=== PATIENT | female | born 1980 | race Two or more races ===

== ENCOUNTER 2025-03-22 20:07 | Inpatient (IN) | payer OTHER ==
[~2025-03-22] VITALS: Ht 162.6 cm; Wt 72.3 kg
--- NOTE | 2025-03-22 20:30 | ED.PDOC ---
GI ASSESSMENT HPI Comments 44 y/o Malaysian-speaking F presents with c/c lower abdominal pain, constipation, and urinary retention. Patient endorses of 4x day history with pain following initial, unprovoked and atraumatic onset, with additional onset of remaining symptoms, today. Denies any nausea, vomiting, or further acute symptoms. 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 OPERATOR Hx Family History Family History: Unknown Social History Smoker: Non-Smoker Alcohol: Denies ETOH Use Drugs: Denies Drug Use Lives In: Home All Other Systems: Reviewed and Negative (As per HPI) Physical Exam General Appearance: No Apparent Distress, Normal HEENT: Normal ENT Inspection, Pharynx Normal, TMs Normal Neck: Full Range of Motion, Non-Tender, Normal, Normal Inspection Respiratory: Chest Non-Tender, Lungs Clear, No Accessory Muscle Use, No Respiratory Distress, Normal Breath Sounds Cardiovascular: No Edema, No JVD, No Murmur, No Gallop, Normal Peripheral Pulses, Regular Rate/Rhythm Breast Exam: Deferred Gastrointestinal: No Organomegaly, No Pulsatile Mass, Normal Bowel Sounds, Soft, Tenderness (mild tenderness to lower abdomen ) Genitalia: Deferred Pelvic: Deferred Rectal: Deferred Extremities: No calf tenderness, Normal capillary refill, Normal inspection, Normal range of motion, Non-tender, No pedal edema Musculoskeletal : Apperance: Normal Neurologic: Alert, siene maker II-XII nml as Tested, No Motor Deficits, Normal Affect, Normal Mood, No Sensory Deficits Cerebellar Function: Normal Reflexes: Normal Skin: Dry, Normal Color, Warm Lymphatic: No Adenopathy Was a procedure done? Was a procedure done?: No GI differential Dx Differential Diagnosis: Constipation, Gastritis/PUD, Gastroenteritis, UTI, Urolithiasis, Electrolyte Imbalance, Food Poisoning, , Viral, Kidney Stone X-Ray, Labs, Meds, VS Vital Signs Date Time Temp Pulse Resp B/P (MAP) Pulse Ox O2 Delivery O2 Flow Rate FiO2 03/22/25 20:14 98.5 89 16 144/118 98 98.5 Lab Test 03/22/25 20:42 03/22/25 20:40 Range/Units Urine Color Light-yellow Yellow Urine Clarity Clear Clear Urine pH 5.5 5.0-9.0 Urine Specific [place] 1.020 1.001-1.035 Urine Protein Negative Negative Urine Ketones Negative Negative Urine Blood 2+ H Negative /uL Urine Nitrite Negative Negative Urine Bilirubin Negative Negative Urine Urobilinogen Normal Negative mg/dL Urine Leukocyte Esterase Negative Negative /uL Urine RBC 2 0 - 4 /hpf Urine Microscopic WBC < 1 0-5 /HPF Urine Squamous Epithelial Cells Few <5 /hpf Urine Bacteria None seen None Seen /hpf Urine Glucose 1+ H Normal mg/dL Urine Test Negative Negative White Blood Count 26.7 H 4.4-10.8 10^3/uL Red Blood Count 4.97 4.0-5.20 10^6/uL Hemoglobin 14.5 12.2-16.2 g/dL Hematocrit 42.8 36.0-46.0 % Mean Corpuscular Volume 86.0 80.0-100.0 fL Mean Corpuscular Hemoglobin 29.1 28.0-32.0 pg Mean Corpuscular Hemoglobin Concent 33.8 32.0-36.0 g/dL Red Cell Distribution Width 13.4 11.8-14.3 % Platelet Count 238 140-450 10^3/uL Mean Platelet Volume 9.1 6.9-10.8 fL Neutrophils (%) (Auto) 90.5 H 37.0-80.0 % Lymphocytes (%) (Auto) 5.1 L 10.0-50.0 % Monocytes (%) (Auto) 3.7 0.0-12.0 % Eosinophils (%) (Auto) 0.5 0.0-7.0 % Basophils (%) (Auto) 0.2 0.0-2.0 % Neutrophils # (Auto) 24.1 H 1.6-8.6 10 ^3/uL Lymphocytes # (Auto) 1.4 0.4-5.4 10 ^3/uL Monocytes # (Auto) 1.0 0-1.3 10 ^3/uL Eosinophils # (Auto) 0.1 0-0.8 10 ^3/uL Basophils # (Auto) 0.1 0-0.2 10 ^3/uL Nucleated Red Blood Cells 0.1 % Sodium Level 132 L 136-145 mmol/L Potassium Level 4.4 3.5-5.1 mmol/L Chloride Level 101 98-107 mmol/L Carbon Dioxide Level 22 20-31 mmol/L Anion Gap 9 5-15 Blood Urea Nitrogen 9 9-23 mg/dL Creatinine 0.73 0.550-1.02 mg/dL Glomerular Filtration Rate Calc 104 >90 mL/min BUN/Creatinine Ratio 12.3 10.0-20.0 Serum Glucose 125 H 74-106 mg/dL Calcium Level 9.2 8.7-10.4 mg/dL Total Bilirubin 0.4 0.2-1.0 mg/dL Aspartate Amino Transferase (AST) 23 13-40 U/L Alanine Aminotransferase (ALT) 39 7-40 U/L Alkaline Phosphatase 78 46-116 U/L Total Protein 7.9 5.7-8.2 g/dL Albumin 5.0 H 3.2-4.8 g/dL Lipase 33 12-53 U/L Time of 1ST Reevaluation: 20:50 Reevaluation 1ST: Unchanged Patient Education/Counseling: Diagnosis, Treatment, Need For Follow Up Family Education/Counseling: Diagnosis, Treatment, Need For Follow Up SEPSIS Sepsis Screen Date sepsis recognized/suspect: Mar 22, 2025 Time Sepsis recognized/suspect: 2013 Recent Procedure: No On Antibiotic Therapy: No Respiratory Rate >20: No Heart Rate >90: No Temp<36 C (96.8 F) or >38.3 C: No SBP <90 or MAP <65 mmHG: No New Acute Mental Status Change: No Is the patient on CPAP, BIPAP,: No Physician Orders Ct Ab Pel With Iv Con Only (03/22/25 20:26) Ceftriaxone 1gm/50ml (Rocephin) (03/22/25 23:00) Lactic Acid W/ Reflex Order (03/22/25 22:50) Blood Culture (03/22/25 22:50) Vital Signs Date Time Temp Pulse Resp B/P (MAP) Pulse Ox O2 Delivery O2 Flow Rate FiO2 03/22/25 20:14 98.5 89 16 144/118 98 98.5 Laboratory Tests Test 03/22/25 20:40 White Blood Count 26.7 10^3/uL (4.4-10.8) H Departure 1 Departure Time of Disposition: 22:51 Impression: Primary Impression: Intractable abdominal pain Additional Impressions: Leukocytosis Cholelithiasis Disposition: ADMITTED INPATIENT Condition: Guarded Comments 44-year-old female with significant abdominal pain. White blood cell count very elevated 26.7. CT of the abdomen shows constipation and gallstones. Patient is still has discomfort on re-evaluation. Patient was given IV fluids and IV Rocephin antibiotics. Patient will need to be admitted for supportive care and further workup Critical Care Note Critical Care Time?: No Stability Stability form required: No Heart Score Heart Score: Heart Score Response (Comments) Value History N/A 0 EKG N/A 0 Age N/A 0 Risk Factors N/A 0 Troponin N/A 0 Total 0 I personally scribed for MAUREEN QUEEN MD ([email or web address]) on 03/22/25 at 20:30. Electronically submitted by Travis Nugent [email or web address]). MAUREEN QUEEN MD Mar 22, 2025 20:30
[2025-03-22 20:50] LABS: Hematocrit 42.8 % (36.0-46.0); Hemoglobin 14.5 g/dL (12.2-16.2); Mean Corpuscular Hemoglobin 29.1 pg (28.0-32.0); Mean Corpuscular Volume 86.0 fL (80.0-100.0); Nucleated Red Blood Cells % 0.1 %
[2025-03-22 20:51] LABS: Urine Protein, UAD Negative (Negative)
[2025-03-22 21:06] LABS: Alanine Aminotransferase 39 U/L (7-40); Alkaline Phosphatase 78 U/L (46-116); Anion Gap 9 (5-15); BUN/Creatinine Ratio 12.3 (10.0-20.0); Blood Urea Nitrogen 9 mg/dL (9-23); Calcium 9.2 mg/dL (8.7-10.4); Carbon Dioxide 22 mmol/L (20-31); Chloride 101 mmol/L (98-107); Lipase 33 U/L (12-53); Potassium 4.4 mmol/L (3.5-5.1); Total Protein 7.9 g/dL (5.7-8.2)
[2025-03-22 21:07] LABS: Bilirubin, Total 0.4 mg/dL (0.2-1.0)
[2025-03-22 21:08] LABS: Albumin 5.0 g/dL (3.2-4.8); Glucose 125 mg/dL (74-106); Sodium 132 mmol/L (136-145)
[2025-03-22] MEDS: IOHEXOL 300 MG/ML 100ML BOTTLE IJ ONE (21:30)
--- NOTE | 2025-03-22 22:16 | DVH ---
Exam: CT CT AB PEL WITH IV CON ONLY History: abd pain Comparison Study: None TECHNIQUE: Multidetector CT of the abdomen was performed from lung bases to pubic symphysis. Imaging was performed without IV contrast. Axial, coronal and sagittal multiplanar reformats were obtained fr om the axial data set by the technologist. Radiation Dose Information: CT Dose: CTDI volume is 17.05 mGy. Dose-length product is 1042 0.98 mGy*cm Omnipaque 300: 99 mL FINDINGS: Lung Bases: No acute or significant lung base finding. Normal heart size. No pleural or pericardial effusion. Liver: The liver is normal in size. No focal lesions. Gallbladder and Biliary Tree: Gallstones Spleen: Unremarkable Pancreas: The pancreas is grossly normal in appearance. Adrenal Glands: Unremarkable Kidneys: Kidneys are grossly normal without calculi or hydronephrosis. Bladder: Grossly unremarkable for degree of distention. Bowel: The stomach is grossly normal in appearance. Small bowel and colon are normal in caliber and d istribution. No findings of bowel obstruction however large stool burden through the colon especially in the rectosigmoid colon The appendix is not visualized; however, no secondary findings of acute ap pendicitis identified. Ascites: Absent Lymphadenopathy: No mesenteric, retroperitoneal or periportal lymphadenopathy. Abdominal Wall and Mesentery: Unremarkable. Vasculature: The visualized abdominal aorta is normal in size and caliber. Evaluation of abdominal a nd pelvic vessels is limited due to lack of intravenous contrast. Pelvic Organs: IUD in the uterus Musculoskeletal: No aggressive focal bony lesions, acute fractures or dislocation. Soft tissues: Multiple small soft tissue nodules in the subcutaneous tissues of the gluteal area bila terally. IMPRESSION: 1. Large stool burden throughout the colon especially in the rectosigmoid colon. 2. Findings may represent constipation in the appropriate clinical setting. 9 cm collection of stool in the rectosigmoid colon correlate for possible constipation or fecal impaction. 3. Otherwise, no acute abnormalities in the abdomen or pelvis. 4. Cholelithiasis 5. Hepatic steatosis. Radiation optimization: All CT scans at this facility use at least one of these dose optimization gina hniques: automated exposure control mA and/or kV adjustment per patient size (includes targeted exam s where dose is matched to clinical indication) or iterative reconstruction.
[2025-03-23] MEDS ORDERED: ACETAMINOPHEN 325 MG TAB PO PRN ×2 (00:15)
[2025-03-23] MEDS ORDERED: FLEET MINERAL OIL ENEMA 133 ML PR ONE (00:15)
[2025-03-23] MEDS ORDERED: NITROGLYCERIN 0.4 MG SL TAB SL PRN (00:15)
[2025-03-23] MEDS ORDERED: MORPHINE SULFATE INJ 2 MG/ml SYRG IV PRN (00:15)
[2025-03-23] MEDS ORDERED: ONDANSETRON HCL 4 MG/2 ML VIAL IV PRN (00:15)
[2025-03-23] MEDS: FLEET ENEMA(ADULT) 135 ML PR ONE (01:07)
[2025-03-23] MEDS: SODIUM CHLORIDE 0.9% 1,000 ML IV SCH (01:07)
[2025-03-23 01:17] VITALS: TEMP 98; O2SAT 95
[2025-03-23] MEDS: SODIUM CHLORIDE 0.9% 1,000 ML IVB ONE (01:39)
[2025-03-23] MEDS: ONDANSETRON HCL 4 MG/2 ML VIAL IV ONE (01:39)
[2025-03-23 01:40] VITALS: BP 156/98; PULSE 83; RESP 18
[2025-03-23] MEDS: MORPHINE SULFATE 4 MG/ML SYR/VIAL IV ONE (01:40)
[2025-03-23] MEDS: LACTULOSE 20Gm/30ML SOLN PO SCH (01:40)
[2025-03-23] MEDS ORDERED: PIPERACILLIN-TAZOB 3.375GM 100 ML IV SCH (06:00)
[2025-03-23] MEDS ORDERED: ASCORBIC ACID 500 MG TAB PO SCH (10:00)
[2025-03-23] MEDS ORDERED: DOCUSATE SOD 100 MG CAP PO PRN (10:00)
--- NOTE | 2025-03-23 13:50 | DVHHP2 ---
Admitting Diagnosis: abdominal pain History of Present Illness 44 y/o Lao-speaking F presents with c/c lower abdominal pain, constipation, and urinary retention. Patient endorses of 4x day history with pain following initial, unprovoked and atraumatic onset, with additional onset of remaining symptoms, today. Denies any nausea, vomiting, or further acute symptoms. While in the emergency department the patient was evaluated by the provider, As per provider: Labs, vital signs, and imagining monitored. Patient will be admitted for further evaluation and treatment. I discussed admission with the patient/family and is in agreement to treatment plan. Allergies: Coded Allergies: NO KNOWN ALLERGIES (Unverified , 03/22/25) Current Medications Current Medications Medications (Trade) Dose Ordered Sig/Carlos Route PRN Reason Start Time Stop Time Status Last Admin Sodium Chloride 1,000 ml @ 120 mls/hr Q8H20M IV 03/23/25 00:15 Acetaminophen (Tylenol Tablet) 325 mg Q4HP PRN PO MILD PAIN (1-3 PAIN SCALE) 03/23/25 00:15 03/23/25 00:19 DC Ondansetron HCl (Zofran) 4 mg Q4HP PRN IV NAUSEA / VOMITING 03/23/25 00:15 Docusate Sodium (Colace Capsule) 100 mg BIDPRN PRN PO CONSTIPATION 03/23/25 10:00 Ascorbic Acid (Vitamin C Tablet) 500 mg BID PO 03/23/25 10:00 Acetaminophen (Tylenol Tablet) 650 mg Q6HP PRN PO PAIN SCALE 1-3 OR TEMP>100.4 03/23/25 00:15 Nitroglycerin (Ntrostat Sublingual) 0.4 mg Q5MINP PRN SL FOR CHEST PAIN 03/23/25 00:15 Morphine Sulfate 2 mg Q30M PRN IV FOR CHEST PAIN 03/23/25 00:15 Piperacillin Sod/ Tazobactam Sod 100 ml @ 25 mls/hr Q8HR IV 03/23/25 06:00 Lactulose 30 ml Q4HR PO 03/23/25 02:00 03/23/25 07:13 Review of Systems Constitutional: denies chills, denies fever, denies malaise Eyes: denies eye pain, denies vision change ENT: denies ear pain, denies headache, denies nasal congestion, denies painful swallowing, denies voice change Cardiovascular: denies chest pain, denies edema, denies orthopnea, denies palpitations, denies paroxysmal nocturnal dyspnea Respiratory: denies cough, denies shortness of breath Gastrointestinal: denies constipation, denies diarrhea, denies nausea, denies vomiting Genitourinary: denies dysuria, denies frequent urination, denies urethral discharge Musculoskeletal: denies back pain, denies joint pain, denies muscle pain Skin: denies bruising, denies itching, denies rash Neurological: denies focal weakness, denies headache, denies sensory changes Psychiatric: denies anxiety, denies depression Endocrine: denies polydipsia, denies polyuria Hematologic/Lymphatic: denies easy bleeding, denies easy bruising, denies enlarged lymph nodes Allergic/Immunologic: denies allergy, denies hives Vital Signs Vital Signs Date Time Temp Pulse Resp B/P (MAP) Pulse Ox O2 Delivery O2 Flow Rate FiO2 03/23/25 01:40 83 18 156/98 03/23/25 01:17 98.0 95 98.0 Physical Exam General Appearance: alert, no distress HEENT: EOMI, PERRLA, normal external inspect of ears, no icterus, no nasal drainage Neck: no carotid bruit, no jugular venous distention (JVD), no lymphadenopathy Chest: normal thorax Respiratory: clear to auscultation, normal air movement Cardiovascular: regular rate and rhythm, no diastolic murmur, no jugular venous distention (JVD), no rub, no systolic murmur Abdominal: soft, no hepatomegaly, no mass, no splenomegaly, no tenderness Genitourinary: grossly normal external Musculoskeletal: no joint tenderness, no swelling Extremities: normal pulses, no calf tenderness, no clubbing, no cyanosis, no edema Skin: no bruising, no jaundice, no rash Neurological: alert, No focal deficit SEPSIS Sepsis Screen Date sepsis recognized/suspect: Mar 23, 2025 Time Sepsis recognized/suspect: 014 Recent Procedure: No On Antibiotic Therapy: No Respiratory Rate >20: No Heart Rate >90: No Temp<36 C (96.8 F) or >38.3 C: No SBP <90 or MAP <65 mmHG: No New Acute Mental Status Change: No Is the patient on CPAP, BIPAP,: No Physician Orders Ct Ab Pel With Iv Con Only (03/22/25 20:26) Blood Culture (03/22/25 22:50) Admit (03/23/25 00:02) Sodium Chloride 0.9% (03/23/25 00:15) Ondansetron Hcl (Zofran) (03/23/25 00:15) Docusate Sodium Capsule (Colace Capsule) (03/23/25 10:00) Ascorbic Acid Tablet (Vitamin C Tablet) (03/23/25 10:00) Complete Blood Count (03/24/25 04:00) Comprehensive Metabolic Panel (03/24/25 04:00) Acetaminophen Tablet (Tylenol Tablet) (03/23/25 00:15) Clear Liq Diet (03/23/25 Breakfast) Nitroglycerin Sublingual (Ntrostat Subli (03/23/25 00:15) Morphine Sulfate Injection (03/23/25 00:15) Stat Ekg For Chest Pain (03/23/25 00:02) Notify Md Of Changes From Base (03/23/25 00:02) Milling Operator For 24 Hours (03/23/25 00:02) Emergency Dysrhythmia Protocol (03/23/25 00:02) Rhythm Strips Once Every Shift (03/23/25 00:02) Oxygen By Nasal Cannula (03/23/25 00:02) Piperacillin-Tazob 3.375gm (Zosyn 3.375g (03/23/25 06:00) Lactulose Oral (03/23/25 02:00) * Gi Dvh Wood Type Finisher (03/23/25 00:06) * Surgical Consult (03/23/25 ) Vital Signs Date Time Temp Pulse Resp B/P (MAP) Pulse Ox O2 Delivery O2 Flow Rate FiO2 03/23/25 01:40 83 18 156/98 03/23/25 01:17 98.0 83 18 156/98 (117) 95 98.0 03/22/25 23:46 98.4 87 16 158/93 (114) 96 98.4 03/22/25 20:14 98.5 89 16 144/118 98 98.5 Laboratory Tests Test 03/22/25 20:40 03/22/25 23:00 White Blood Count 26.7 10^3/uL (4.4-10.8) H Lactic Acid Level 2.0 mmol/L (0.4-2.0) Results Labs Test 03/22/25 23:00 03/22/25 20:42 03/22/25 20:40 Range/Units Lactic Acid Level 2.0 0.4-2.0 mmol/L Urine Color Light-yellow Yellow Urine Clarity Clear Clear Urine pH 5.5 5.0-9.0 Urine Specific [place] 1.020 1.001-1.035 Urine Protein Negative Negative Urine Ketones Negative Negative Urine Blood 2+ H Negative /uL Urine Nitrite Negative Negative Urine Bilirubin Negative Negative Urine Urobilinogen Normal Negative mg/dL Urine Leukocyte Esterase Negative Negative /uL Urine RBC 2 0 - 4 /hpf Urine Microscopic WBC < 1 0-5 /HPF Urine Squamous Epithelial Cells Few <5 /hpf Urine Bacteria None seen None Seen /hpf Urine Glucose 1+ H Normal mg/dL Urine Test Negative Negative White Blood Count 26.7 H 4.4-10.8 10^3/uL Red Blood Count 4.97 4.0-5.20 10^6/uL Hemoglobin 14.5 12.2-16.2 g/dL Hematocrit 42.8 36.0-46.0 % Mean Corpuscular Volume 86.0 80.0-100.0 fL Mean Corpuscular Hemoglobin 29.1 28.0-32.0 pg Mean Corpuscular Hemoglobin Concent 33.8 32.0-36.0 g/dL Red Cell Distribution Width 13.4 11.8-14.3 % Platelet Count 238 140-450 10^3/uL Mean Platelet Volume 9.1 6.9-10.8 fL Neutrophils (%) (Auto) 90.5 H 37.0-80.0 % Lymphocytes (%) (Auto) 5.1 L 10.0-50.0 % Monocytes (%) (Auto) 3.7 0.0-12.0 % Eosinophils (%) (Auto) 0.5 0.0-7.0 % Basophils (%) (Auto) 0.2 0.0-2.0 % Neutrophils # (Auto) 24.1 H 1.6-8.6 10 ^3/uL Lymphocytes # (Auto) 1.4 0.4-5.4 10 ^3/uL Monocytes # (Auto) 1.0 0-1.3 10 ^3/uL Eosinophils # (Auto) 0.1 0-0.8 10 ^3/uL Basophils # (Auto) 0.1 0-0.2 10 ^3/uL Nucleated Red Blood Cells 0.1 % Sodium Level 132 L 136-145 mmol/L Potassium Level 4.4 3.5-5.1 mmol/L Chloride Level 101 98-107 mmol/L Carbon Dioxide Level 22 20-31 mmol/L Anion Gap 9 5-15 Blood Urea Nitrogen 9 9-23 mg/dL Creatinine 0.73 0.550-1.02 mg/dL Glomerular Filtration Rate Calc 104 >90 mL/min BUN/Creatinine Ratio 12.3 10.0-20.0 Serum Glucose 125 H 74-106 mg/dL Calcium Level 9.2 8.7-10.4 mg/dL Total Bilirubin 0.4 0.2-1.0 mg/dL Aspartate Amino Transferase (AST) 23 13-40 U/L Alanine Aminotransferase (ALT) 39 7-40 U/L Alkaline Phosphatase 78 46-116 U/L Total Protein 7.9 5.7-8.2 g/dL Albumin 5.0 H 3.2-4.8 g/dL Lipase 33 12-53 U/L Plan 1. Intractable abdominal pain Monitor, GI consult 2. Cholelithiasis Monitor, GI consult, IV abx, IVF, cathartics 3. Leukocytosis Monitor, 4. Benign essential HTN Monitor, PPI, DVT prophylaxis 5. Constipation Monitor, GI consult, surgical consult, IVF Plan discussed with: Patient, Other ANASTASIIALUCINABRITTANY Briggs NP Mar 23, 2025 13:50
--- NOTE | 2025-03-23 13:50 | DVHPN2 ---
Progress Note - Dictate vital signs Vital Sign Date Time Temp Pulse Resp B/P (MAP) Pulse Ox O2 Delivery O2 Flow Rate FiO2 03/23/25 01:40 83 18 156/98 03/23/25 01:17 98.0 95 98.0 medications Current Medications Medications Dose Ordered Sig/Carlos Route Start Time Stop Time Status Last Admin Dose Admin Sodium Chloride 1,000 ml @ 120 mls/hr Q8H20M IV 03/23/25 00:15 Ondansetron HCl 4 mg Q4HP PRN IV 03/23/25 00:15 Docusate Sodium 100 mg BIDPRN PRN PO 03/23/25 10:00 Ascorbic Acid 500 mg BID PO 03/23/25 10:00 Acetaminophen 650 mg Q6HP PRN PO 03/23/25 00:15 Nitroglycerin 0.4 mg Q5MINP PRN SL 03/23/25 00:15 Morphine Sulfate 2 mg Q30M PRN IV 03/23/25 00:15 Piperacillin Sod/ Tazobactam Sod 100 ml @ 25 mls/hr Q8HR IV 03/23/25 06:00 Lactulose 30 ml Q4HR PO 03/23/25 02:00 03/23/25 07:13 laboratory and microbiology Laboratory Tests 03/22/25 20:40 Test 03/22/25 20:40 Range/Units Serum Glucose 125 H 74-106 mg/dL LUCINA LAURENT NP Mar 23, 2025 13:50
--- NOTE | 2025-03-23 13:51 | DVHDS2 ---
Discharge Summary Date of Admission Mar 23, 2025 at 00:02 Date of Discharge: Mar 23, 2025 Labs/Diagnostic Data: Laboratory Results Test 03/22/25 23:00 03/22/25 20:42 03/22/25 20:40 Lactic Acid Level 2.0 mmol/L (0.4-2.0) Urine Color Light-yellow (Yellow) Urine Clarity Clear (Clear) Urine pH 5.5 (5.0-9.0) Urine Specific [place] 1.020 (1.001-1.035) Urine Protein Negative (Negative) Urine Ketones Negative (Negative) Urine Blood 2+ /uL (Negative) Urine Nitrite Negative (Negative) Urine Bilirubin Negative (Negative) Urine Urobilinogen Normal mg/dL (Negative) Urine Leukocyte Esterase Negative /uL (Negative) Urine RBC 2 /hpf (0 - 4) Urine Microscopic WBC < 1 /HPF (0-5) Urine Squamous Epithelial Cells Few /hpf (<5) Urine Bacteria None seen /hpf (None Seen) Urine Glucose 1+ mg/dL (Normal) Urine Test Negative (Negative) White Blood Count 26.7 10^3/uL (4.4-10.8) Red Blood Count 4.97 10^6/uL (4.0-5.20) Hemoglobin 14.5 g/dL (12.2-16.2) Hematocrit 42.8 % (36.0-46.0) Mean Corpuscular Volume 86.0 fL (80.0-100.0) Mean Corpuscular Hemoglobin 29.1 pg (28.0-32.0) Mean Corpuscular Hemoglobin Concent 33.8 g/dL (32.0-36.0) Red Cell Distribution Width 13.4 % (11.8-14.3) Platelet Count 238 10^3/uL (140-450) Mean Platelet Volume 9.1 fL (6.9-10.8) Neutrophils (%) (Auto) 90.5 % (37.0-80.0) Lymphocytes (%) (Auto) 5.1 % (10.0-50.0) Monocytes (%) (Auto) 3.7 % (0.0-12.0) Eosinophils (%) (Auto) 0.5 % (0.0-7.0) Basophils (%) (Auto) 0.2 % (0.0-2.0) Neutrophils # (Auto) 24.1 10 ^3/uL (1.6-8.6) Lymphocytes # (Auto) 1.4 10 ^3/uL (0.4-5.4) Monocytes # (Auto) 1.0 10 ^3/uL (0-1.3) Eosinophils # (Auto) 0.1 10 ^3/uL (0-0.8) Basophils # (Auto) 0.1 10 ^3/uL (0-0.2) Nucleated Red Blood Cells 0.1 % Sodium Level 132 mmol/L (136-145) Potassium Level 4.4 mmol/L (3.5-5.1) Chloride Level 101 mmol/L (98-107) Carbon Dioxide Level 22 mmol/L (20-31) Anion Gap 9 (5-15) Blood Urea Nitrogen 9 mg/dL (9-23) Creatinine 0.73 mg/dL (0.550-1.02) Glomerular Filtration Rate Calc 104 mL/min (>90) BUN/Creatinine Ratio 12.3 (10.0-20.0) Serum Glucose 125 mg/dL (74-106) Calcium Level 9.2 mg/dL (8.7-10.4) Total Bilirubin 0.4 mg/dL (0.2-1.0) Aspartate Amino Transferase (AST) 23 U/L (13-40) Alanine Aminotransferase (ALT) 39 U/L (7-40) Alkaline Phosphatase 78 U/L (46-116) Total Protein 7.9 g/dL (5.7-8.2) Albumin 5.0 g/dL (3.2-4.8) Lipase 33 U/L (12-53) Other Laboratory Tests 03/22/25 20:40 Brief Hx & Hospital Course: 44 y/o Zambian-speaking F presents with c/c lower abdominal pain, constipation, and urinary retention. Patient endorses of 4x day history with pain following initial, unprovoked and atraumatic onset, with additional onset of remaining symptoms, today. Denies any nausea, vomiting, or further acute symptoms. The patient decided they wanted to leave AMA. The patient was informed about the risk of leaving. And was informed about the risk that are involved if they left without any treatment which may include . The patient was okay with it and decided to leave without any intervention. The patient was told to return for any worsening symptoms. Condition at Discharge: Unstable Final Diagnosis/Problems List 1. Intractable abdominal pain 2. Cholelithiasis 3. Leukocytosis 4. Benign essential HTN 5. Constipation Discharge Disposition: AMA Discharge Statement: "Patient was advised to return to the ER or call 911 if any headaches, dizziness, shortness of breath, chest pain, abdominal pain, bleeding, fevers, or worsening of medical condition. Patient was counseled about treatment plan, medications, possible side effects, patientverbalized understanding. All questions were answered to the best of my ability. This discharge took greater then 30 minutes in planning, reviewing documentation, counseling the patient, and discussing with other team members." ASSESSMENT ASSESSMENT Assessment LUCINA LAURENT NP Mar 23, 2025 13:51
== END 2025-03-23 07:17 | disposition left against medical advice (07) ==
LOC: ER 20:07 → OVERFLOW 03-23 00:02
PROVIDERS: ADMIT Internal Medicine; ATTEND Internal Medicine
DX: K80.20 Calculus of gallbladder without cholecystitis without obstruction (principal); D72.829 Elevated white blood cell count, unspecified; I10 Essential (primary) hypertension; K59.00 Constipation, unspecified; Z53.29 Procedure and treatment not carried out because of patient's decision for other reasons
CPT/HCPCS: 36415; 74177; 80053; 81001; 81025; 83605; 83690; 85025; 87040; 96361; 96374; G0378; J2405; J2543